=== PATIENT | male | born 1950 | race Caucasian/White ===

== ENCOUNTER → 2018-02-04 | Outpatient (CLI) | payer OTHER, BC ==
[~2018-02-04] MED LIST: ASPIR 8181 M1 PO; MULTI VITAMIN1 EACH PO; SIMVASTATIN80 MG PO; TOBREX5 ML RIGHT EYE
[2018-02-06 13:15] LABS: Flow Clinical Information NOT PROVIDED (()); Flow Number of Markers 22 (()); Flow Spec Viability 62 % (())
== END | disposition home or self-care (01) ==
LOC: RAD 08:47 → EDSTATUS 09:00 → RAD 02-07 09:00
PROVIDERS: Thoracic Surgery (Cardiothoracic Vascular Surgery)
PROC: 0CB83ZX Excision of Right Parotid Gland, Percutaneous Approach, Diagnostic (ICD-10-PCS; principal; 2018-02-04)
DX: D11.0 Benign neoplasm of parotid gland (principal)
CPT/HCPCS: 76942; 88305